=== PATIENT | male | born 1980 | race Caucasian/White ===

== ENCOUNTER 2016-08-30 20:33 | Emergency (ER) | payer SELFPAY ==
[2016-08-30 20:56] VITALS: RESP 18
[2016-08-30] MEDS ORDERED: HYDROcodone/APAP 5-325MG 1 EACH TAB PO STA (21:34)
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
--- NOTE | 2016-08-30 22:09 | XR ---
EXAMINATION TYPE: XR ankle complete LT DATE OF EXAM: 08/30/2016 9:45 PM COMPARISON: NONE HISTORY: Ankle pain Technique 3 views. Findings I see no fracture nor dislocation. Ankle mortise is anatomic. Joint spaces are normal. IMPRESSION: Negative left ankle exam.
[2016-08-30 22:50] VITALS: BP 127/69; PULSE 54; TEMP 98
== END 2016-08-30 22:50 | disposition home or self-care (01) ==
LOC: EC 20:33
DX: S93.402A Sprain of unspecified ligament of left ankle, initial encounter (principal); S80.811A Abrasion, right lower leg, initial encounter; Z88.0 Allergy status to penicillin; F17.200 Nicotine dependence, unspecified, uncomplicated; W31.82XA Contact with other commercial machinery, initial encounter; Y99.0 Civilian activity done for income or pay
CPT/HCPCS: 99283

== ENCOUNTER 2017-04-10 09:49 | Emergency (ER) | payer OTHER ==
[2017-04-10 09:57] VITALS: RESP 18
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
--- NOTE | 2017-04-10 11:01 | XR ---
Left elbow HISTORY: Trauma and pain 3 views of the left elbow No comparisons Bone mineralization, joint spaces and alignment are maintained. No evident joint effusion. Mild soft tissue swelling. IMPRESSION: No acute fracture or dislocation evident, follow-up as indicated for persistent symptoms.
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
--- NOTE | 2017-04-10 11:08 | XR ---
Left foot HISTORY: Trauma and pain 3 views of the left foot No comparisons Bone mineralization, joint spaces and alignment are maintained. IMPRESSION: No fracture or dislocation. Follow-up as indicated.
[2017-04-10 11:48] VITALS: BP 124/70; PULSE 62; TEMP 98
== END 2017-04-10 11:47 | disposition home or self-care (01) ==
LOC: EC 09:49
DX: S93.402A Sprain of unspecified ligament of left ankle, initial encounter (principal); S50.02XA Contusion of left elbow, initial encounter; F17.200 Nicotine dependence, unspecified, uncomplicated; Z88.0 Allergy status to penicillin; Y93.39 Activity, other involving climbing, rappelling and jumping off; X50.1XXA Overexertion from prolonged static or awkward postures, initial encounter
CPT/HCPCS: 99284

== ENCOUNTER 2017-10-21 19:16 | Emergency (ER) | payer OTHER ==
[2017-10-21] MEDS ORDERED: HYDROcodone/APAP 5-325MG 1 EACH TAB PO STA (21:03)
[2017-10-21] MEDS ORDERED: RX INFO: IV CONTRAST WAS GIVEN 1 EACH MISC MISCELLANE PRN (21:03)
[2017-10-21 21:27] LABS: Basophils % (A) 0 %; Eosinophils # (A) 0.3 k/uL (0-0.7); Eosinophils % (A) 3 %; HCT 40.6 % (39.0-53.0); HGB 14.2 gm/dL (13.0-17.5); Lymphocytes # (A) 1.1 k/uL (1.0-4.8); Lymphocytes % (A) 11 %; MCH 32.7 pg (25.0-35.0); MCHC 34.9 g/dL (31.0-37.0); MCV 93.6 fL (80.0-100.0); Mean Platelet Volume 7.2; Monocytes # (A) 0.6 k/uL (0-1.0); Monocytes % (A) 5 %; Neutrophils # (A) 8.8 k/uL (1.3-7.7); Neutrophils % (A) 81 %; Platelet Count 235 k/uL (150-450); RBC 4.34 m/uL (4.30-5.90); WBC 10.9 k/uL (3.8-10.6)
[2017-10-21 21:41] LABS: ALT 25 U/L (21-72); AST 16 U/L (17-59); Alkaline Phosphatase 68 U/L (38-126); Anion Gap 10 mmol/L; Blood Urea Nitrogen 15 mg/dL (9-20); Calcium 9.1 mg/dL (8.4-10.2); Carbon Dioxide 28 mmol/L (22-30); Chloride 103 mmol/L (98-107); Glucose 115 mg/dL (74-99); Potassium 3.6 mmol/L (3.5-5.1); Sodium 141 mmol/L (137-145); Total Bilirubin 0.8 mg/dL (0.2-1.3); Total Protein 6.8 g/dL (6.3-8.2)
--- NOTE | 2017-10-21 22:04 | CT ---
EXAMINATION TYPE: CT pelvis w con DATE OF EXAM: 10/21/2017 COMPARISON: NONE INDICATION: Rectal abscess. DLP: 590 mGycm, Automated exposure control for dose reduction was used. CONTRAST: 100ml mL of Omnipaque 300. Study performed without Oral Contrast TECHNIQUE: Axial images were obtained from above the diaphragm to the pubic rami in the axial plane a t 5 mm thick sections. Reconstructed images are reviewed on the computer in the coronal plane. FINDINGS: Limited CT ABDOMEN: There is limited visualization of the lower abdominal structures. No abnormality is identified. CT PELVIS: Loops of bowel within the abdomen and pelvis are normal. Exam is performed without oral contrast limiting bowel loop evaluation. Patient's reported rectal abscess is not identified. Some thickening and phlegmon is not excluded rosanne r the gluteal fold. Some hypodensity may be within this area with ill-defined chang. Early abscess fo rmation is not excluded. This area would measure approximately 2.4 x 1.9 x 1.3 cm size. Appendix: Normal as visualized. Urinary bladder: Normal. Genitourinary structures: Prostate is somewhat prominent. Osseous structures: No suspicious lytic or sclerotic lesions. IMPRESSIONS: 1. Some thickening with ill-defined hypodensity near the gluteal fold below the anus could be phlegm on or early abscess.
[2017-10-21] MEDS ORDERED: CIPROFLOXACIN HCL 500 MG TAB PO STA (22:10)
[2017-10-21] MEDS ORDERED: metroNIDAZOLE 500 MG TAB PO STA (22:12)
--- NOTE | 2017-10-21 22:14 | ED ---
Skin/Abscess/FB HPI - General Chief complaint: Skin/Abscess/Foreign Body Stated complaint: hernia Time Seen by Provider: 10/21/17 20:57 Source: patient, RN notes reviewed Mode of arrival: ambulatory Limitations: no limitations - History of Present Illness Initial comments: This a 37-year-old male presents emergency Department chief complaint of rectal pain. Patient states that he's had a small masslike area, some drainage noted. Patient states that he is having bowel movements that are minimally painful. Patient denies fever, chills or denies any abdominal pain. Patient states that he's had an no rectal penetration. Patient denies any dysuria hematuria. - Related Data Previous Rx's Medication Instructions Recorded Ciprofloxacin HCl [Cipro] 500 mg PO Q12HR #20 tablet 10/21/17 Hydrocodone/Acetaminophen [[place] 1 tab PO Q6HR PRN #15 tab 10/21/17 5-325] metroNIDAZOLE [Flagyl] 500 mg PO TID #30 tab 10/21/17 Allergies Allergy/AdvReac Type Severity Reaction Status Date / Time Penicillins Allergy Unknown Verified 10/21/17 20:52 Childhood Review of Systems ROS Statement: Those systems with pertinent positive or pertinent negative responses have been documented in the HPI. ROS Other: All systems not noted in ROS Statement are negative. Past Medical History Past Medical History: Asthma, Thyroid Disorder History of Any Multi-Drug Resistant Organisms: None Reported Additional Past Surgical History / Comment(s): left arm fasciaotomy Past Psychological History: ADD/ADHD, Anxiety, Bipolar, Depression Smoking Status: Current every day smoker Past Alcohol Use History: Occasional Past Drug Use History: None Reported General Exam Limitations: no limitations General appearance: alert, in no apparent distress Head exam: Present: atraumatic, normocephalic, normal inspection Neck exam: Present: normal inspection. Absent: tenderness, meningismus, lymphadenopathy Respiratory exam: Present: normal lung sounds bilaterally. Absent: respiratory distress, wheezes, rales, rhonchi, stridor Cardiovascular Exam: Present: regular rate, normal rhythm, normal heart sounds. Absent: systolic murmur, diastolic murmur, rubs, gallop, clicks GI/Abdominal exam: Present: soft, normal bowel sounds. Absent: distended, tenderness, guarding, rebound, rigid Rectal exam: Absent: normal inspection (Small erythematous area in the perirectal region that is tender with palpation nonfluctuant) Course Vital Signs 10/21/17 10/21/17 19:26 22:04 Temperature 98.2 F Pulse Rate 89 76 Respiratory 18 17 Rate Blood Pressure 134/66 126/63 O2 Sat by Pulse 99 98 Oximetry Medical Decision Making - Medical Decision Making 37-year-old male presented for perirectal pain. Patient has early phlegmon versus abscess. There is non-fluctuant area noted to open at this time. Patient will be started on Cipro Flagyl follow-up with on-call surgery was be discharged with pain medication return parameters were discussed. - Lab Data Result diagrams: 10/21/17 21:18 10/21/17 21:18 Lab Results 10/21/17 10/21/17 10/21/17 Range/Units 21:18 21:18 21:18 WBC 10.9 H (3.8-10.6) k/uL RBC 4.34 (4.30-5.90) m/uL Hgb 14.2 (13.0-17.5) gm/dL Hct 40.6 (39.0-53.0) % MCV 93.6 (80.0-100.0) fL MCH 32.7 (25.0-35.0) pg MCHC 34.9 (31.0-37.0) g/dL RDW 13.0 (11.5-15.5) % Plt Count 235 (150-450) k/uL Neutrophils % 81 % Lymphocytes % 11 % Monocytes % 5 % Eosinophils % 3 % Basophils % 0 % Neutrophils # 8.8 H (1.3-7.7) k/uL Lymphocytes # 1.1 (1.0-4.8) k/uL Monocytes # 0.6 (0-1.0) k/uL Eosinophils # 0.3 (0-0.7) k/uL Basophils # 0.0 (0-0.2) k/uL Sodium 141 (137-145) mmol/L Potassium 3.6 (3.5-5.1) mmol/L Chloride 103 (98-107) mmol/L Carbon Dioxide 28 (22-30) mmol/L Anion Gap 10 mmol/L BUN 15 (9-20) mg/dL Creatinine 1.00 (0.66-1.25) mg/dL Est GFR (MDRD) Af Amer >60 (>60 ml/min/1.73 sqM) Est GFR (MDRD) Non-Af >60 (>60 ml/min/1.73 sqM) Glucose 115 H (74-99) mg/dL Plasma Lactic Acid Jose 0.9 (0.7-2.0) mmol/L Calcium 9.1 (8.4-10.2) mg/dL Total Bilirubin 0.8 (0.2-1.3) mg/dL AST 16 L (17-59) U/L ALT 25 (21-72) U/L Alkaline Phosphatase 68 (38-126) U/L Total Protein 6.8 (6.3-8.2) g/dL Albumin 4.0 (3.5-5.0) g/dL Disposition Clinical Impression: Abscess of buttock Disposition: HOME SELF-CARE Condition: Stable Instructions: Abscess (ED) Additional Instructions: Please return to the Emergency Department if symptoms worsen or any other concerns. Prescriptions: Ciprofloxacin HCl [Cipro] 500 mg PO Q12HR #20 tablet Hydrocodone/Acetaminophen [[place] 5-325] 1 tab PO Q6HR PRN #15 tab PRN Reason: Pain metroNIDAZOLE [Flagyl] 500 mg PO TID #30 tab Referrals: Elijah Parker MD [Primary Care Provider] - 1-2 days Vasquez Forbes MD [STAFF PHYSICIAN] - 1-2 days Time of Disposition: 22:14
[2017-10-21 22:28] VITALS: BP 131/72; PULSE 78; RESP 18; TEMP 98.5
== END 2017-10-21 22:31 | disposition home or self-care (01) ==
LOC: EC 19:16
DX: L02.31 Cutaneous abscess of buttock (principal); F17.200 Nicotine dependence, unspecified, uncomplicated; Z88.0 Allergy status to penicillin
CPT/HCPCS: 36415; 80053; 83605; 85025; 87040; 72193; 99284; Q9967

== ENCOUNTER 2017-10-22 19:15 | Inpatient (IN) | payer MEDICAID, OTHER ==
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
[2017-10-22 20:29] LABS: Amphetamine Screen,Urine Detected (NotDetected); Barbiturate Screen,Urine Not Detected (NotDetected); Benzodiazepines Screen,Urine Not Detected (NotDetected); Cocaine Screen,Urine Detected (NotDetected); Methadone Screen, Urine Not Detected (NotDetected); Opiate Screen,Urine Detected (NotDetected); Oxycodone Screen, Urine Detected (NotDetected); Phencyclidine Screen,Urine Not Detected (NotDetected); Tricyclic Antidepressant,Urine Not Detected (NotDetected); Urn Cannabinoid Scrn Detected (NotDetected)
[2017-10-22] MEDS ORDERED: NICOTINE 21MG/24HR PATCH TRANSDERM STA (21:18)
[2017-10-22] MEDS ORDERED: ZIPRASIDONE 20 MG VIAL IM PRN (22:06)
[2017-10-22] MEDS ORDERED: MAGNESIUM HYDROXIDE 2,400 MG/10 ML CUP PO PRN (22:06)
[2017-10-22] MEDS ORDERED: MAG HYDROX/AL HYDROX/SIMETH 30 ML CUP PO PRN (22:06)
[2017-10-23] MEDS: NICOTINE 21MG/24HR PATCH TRANSDERM SCH (08:49)
[2017-10-23] MEDS: CIPROFLOXACIN HCL 500 MG TAB PO SCH ×2 (08:49→20:50)
[2017-10-23] MEDS: ACETAMINOPHEN TAB 325 MG TAB PO PRN ×2 (08:49→20:51)
[2017-10-23] MEDS: metroNIDAZOLE 500 MG TAB PO SCH ×3 (08:49→20:52)
[2017-10-23 09:56] LABS: Basophils % (A) 1 %; Eosinophils # (A) 0.3 k/uL (0-0.7); Eosinophils % (A) 6 %; HCT 37.9 % (39.0-53.0); HGB 12.7 gm/dL (13.0-17.5); Lymphocytes # (A) 1.7 k/uL (1.0-4.8); Lymphocytes % (A) 32 %; MCH 31.7 pg (25.0-35.0); MCHC 33.7 g/dL (31.0-37.0); MCV 94.2 fL (80.0-100.0); Mean Platelet Volume 6.8; Monocytes # (A) 0.5 k/uL (0-1.0); Monocytes % (A) 9 %; Neutrophils # (A) 2.6 k/uL (1.3-7.7); Neutrophils % (A) 50 %; Platelet Count 257 k/uL (150-450); RBC 4.02 m/uL (4.30-5.90); RDW 12.8 % (11.5-15.5); WBC 5.3 k/uL (3.8-10.6)
[2017-10-23 10:56] LABS: ALT 37 U/L (21-72); AST 24 U/L (17-59); Albumin 3.3 g/dL (3.5-5.0); Alkaline Phosphatase 68 U/L (38-126); Anion Gap 9 mmol/L; Blood Urea Nitrogen 12 mg/dL (9-20); Calcium 8.8 mg/dL (8.4-10.2); Carbon Dioxide 28 mmol/L (22-30); Chloride 107 mmol/L (98-107); Cholesterol 78 mg/dL (<200); Glucose 144 mg/dL (74-99); HDL Cholesterol 38 mg/dL (40-60); LDL Cholesterol,Calculated 30 mg/dL (0-99); Potassium 3.8 mmol/L (3.5-5.1); Sodium 144 mmol/L (137-145); Total Bilirubin 0.2 mg/dL (0.2-1.3); Total Protein 5.6 g/dL (6.3-8.2); Triglycerides 48 mg/dL (<150)
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
[2017-10-23 19:37] LABS: Hemoglobin A1C 5.3 % (4.0-6.0)
[2017-10-23] MEDS: OLANZapine ODT 5 MG TAB PO SCH (20:50)
--- NOTE | 2017-10-23 23:38 | P.MDCNMH ---
History of Present Illness H&P Date: 10/23/17 Chief Complaint: Emotional breakdown Patient is 37-yearold male with a known history of asthma was admitted to the hospital with complaints of emotional breakdown. Patient was brought to the hospital for psychiatric evaluation. Apparently patient has been using methamphetamine cocaine and marijuana. Patient states that he told his sister that he would be better off . Patient became more paranoid last night. Otherwise patient denied any chest pain or shortness of breath. No recent illnesses or sick contacts. No nausea vomiting or abdominal pain. No diarrhea or dysuria. Patient denied any IV drug abuse. Patient states he primarily uses methamphetamines. Patient denies any alcohol use today. She was seen in the ER for rectal abscess and was started on antibiotics in the form of ciprofloxacin and Flagyl. Patient states that pain is improving and abscesses draining at this time. Review of Systems Constitutional: Patient denies any fever or chills . No generalized weakness or weight loss. Abdomen: Patient denied nausea vomiting and diarrhea and abdominal pain. Cardiovascular: Patient denies any chest pain or short of breath no palpitations. Respiratory: patient denied any cough is from production. No shortness of breath Neurologic: Patient denied any numbness or tingling headache. Musculoskeletal: Patient denies any complaints of joint swelling or deformity. Skin: Negative Psychiatric: Anxious Endocrine: No heat or cold intolerance. No recent weight gain. Genitourinary: No dysuria or hematuria. All other 14 point ROS negative except the above Past Medical History Past Medical History: Asthma, Thyroid Disorder History of Any Multi-Drug Resistant Organisms: None Reported Additional Past Surgical History / Comment(s): left arm fasciaotomy Past Psychological History: ADD/ADHD, Anxiety, Bipolar, Depression Smoking Status: Current every day smoker Past Alcohol Use History: Occasional Past Drug Use History: Methamphetamine Medications and Allergies Home Medications Medication Instructions Recorded Confirmed Type Ciprofloxacin HCl [Cipro] 500 mg PO Q12HR #20 tablet 10/21/17 10/22/17 Rx Hydrocodone/Acetaminophen [[place] 1 tab PO Q6HR PRN #15 tab 10/21/17 10/22/17 Rx 5-325] metroNIDAZOLE [Flagyl] 500 mg PO TID #30 tab 10/21/17 10/22/17 Rx Allergies Allergy/AdvReac Type Severity Reaction Status Date / Time Penicillins Allergy Unknown Verified 10/22/17 20:10 Childhood Physical Exam Vitals: Vital Signs Temp Pulse Resp BP 10/23/17 06:27 98 F 49 L 16 106/60 PHYSICAL EXAMINATION: Patient is lying in the bed comfortably, no acute distress, awake alert and oriented.. HEENT: Normocephalic. Neck is supple. Pupils reactive. Nostrils clear. Oral cavity is moist. Ears reveal no drainage. Neck reveals no JVD, carotid bruits, or thyromegaly. CHEST EXAMINATION: Trachea is central. Symmetrical expansion. Lung anne clear to auscultation and percussion. CARDIAC: Normal S1, S2 with no gallops. No murmurs ABDOMEN: Soft. Bowel sounds normal. No organomegaly. No abdominal bruits. Extremities: reveal no edema. No clubbing or cyanosis Neurologically awake, alert, oriented x3 with well-coordinated movements. No focal deficits noted Skin: No rash or skin lesions. Psychiatric: Coperative. Denied any suicidal ideation Musculoskeletal: No joint swelling or deformity. Normal range of motion. Cranial Nerve Examination - Cranial Nerves Cranial Nerve I- Olfactory: Intact Cranial Nerve II- Optic: Intact Cranial Nerve III- Oculomotor: Intact Cranial Nerve IV- Trochlear: Intact Cranial Nerve V- Trigeminal: Intact Cranial Nerve - Abducens: Intact Cranial Nerve VII- Facial: Intact Cranial Nerve VIII- Auditory: Intact Cranial Nerve IX- Glossopharyngeal: Intact Cranial Nerve X- Vagus: Intact Cranial Nerve XI- Accessory: Intact Cranial Nerve XII- Hypoglossal: Intact Results CBC & Chem 7: 10/23/17 09:21 10/23/17 09:21 Labs: Abnormal Lab Results - Last 24 Hours (Table) 10/23/17 10/23/17 Range/Units 09:21 09:21 RBC 4.02 L (4.30-5.90) m/uL Hgb 12.7 L (13.0-17.5) gm/dL Hct 37.9 L (39.0-53.0) % Glucose 144 H (74-99) mg/dL Total Protein 5.6 L (6.3-8.2) g/dL Albumin 3.3 L (3.5-5.0) g/dL HDL Cholesterol 38 L (40-60) mg/dL Assessment and Plan Assessment: Acute psychosis with paranoid ideation on admission Polysubstance use Emotional breakdown Asthma stable UDS is positive for opiates, amphetamines cocaine and marijuana Depression Rectal abscess Plan: Patient will be continued on antibiotics in the form of ciprofloxacin and Flagyl. Asthma stable at this time otherwise. Continue the current management. Will check HIV status. Otherwise continue the current management and further recommendations based on the clinical course. Monitor for any drug withdrawal symptoms.
[2017-10-24] MEDS: metroNIDAZOLE 500 MG TAB PO SCH ×3 (09:54→21:06)
[2017-10-24] MEDS: CIPROFLOXACIN HCL 500 MG TAB PO SCH ×2 (09:54→21:06)
[2017-10-24] MEDS: NICOTINE 21MG/24HR PATCH TRANSDERM SCH (09:56)
--- NOTE | 2017-10-24 12:59 | P.PN ---
Progress Note - Text Progress Note Date: 10/24/17 Interval History: Patient is a 37-year-old male who was seen today and he reports that he slept last night and is not having any paranoid ideation and denies any suicidal thoughts and is not feeling depressed. Patient states that since he slept he is feeling much better and has been eating well here on the unit. Patient reports no side effects from taking the Zyprexa last evening and states his mouth is not dry. Patient reported that he had yet to make any calls for an intake for inpatient substance abuse rehab. Mental Status: Appearance/Attitude: Patient is appropriately dressed, wearing glasses today makes intermittent eye contact and is cooperative Behavior: Patient is not exhibiting any psychomotor agitation or retardation but does sit with his head down throughout most of the interview Speech/Language: Patient responds to questions with brief sentences little elaboration, his speech is of normal volume and rhythm and he is coherent Thought Process: Patient is goal-directed no evidence of circumstantial or tangential thought and no loose associations or flight of ideas. Thought Content: Patient denies any auditory or visual hallucinations and no delusions or paranoid ideation were elicited. Patient reports that he is sleeping and eating well and states he feels better now that he has slept. He is no longer feeling as irritable as he was and states that his rectal abscesses slightly more painful today. Suicidal/Homicidal Ideation: Patient denies any current suicidal or homicidal ideation. Sensorium/Cognition: Patient is alert and oriented to person, place, and time and his recent and remote memory are grossly intact Mood/Affect: Patient's mood apathetic, his affect is blunted Insight/Judgment: Patient's insight and judgment are fair Assessment: Patient presents stating that he feels better as he is slept and is eating better here on the unit, he denies any current paranoid ideation or any suicidal thoughts and is not feeling depressed. Patient has yet to contact inpatient rehab for an intake appointment. Patient spends most of his time in the room in bed and is not attending groups or activities. Patient reported no side effects from the medication. Plan: Patient will continue on Zyprexa Zydis 5 mg at bedtime, patient was encouraged to contact inpatient rehab to schedule an intake appointment. Consider possible discharge tomorrow if patient continues to improve and there is no evidence of a psychotic process or depression.
[2017-10-24] MEDS: OLANZapine ODT 5 MG TAB PO SCH (21:07)
[2017-10-25 07:00] VITALS: BP 118/57; PULSE 44; RESP 12; TEMP 97.7
[2017-10-25] MEDS: NICOTINE 21MG/24HR PATCH TRANSDERM SCH (09:33)
[2017-10-25] MEDS: metroNIDAZOLE 500 MG TAB PO SCH (09:33)
[2017-10-25] MEDS: CIPROFLOXACIN HCL 500 MG TAB PO SCH (09:33)
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
== END 2017-10-25 13:05 | disposition home or self-care (01) | DRG 885 ==
LOC: EC 19:15 → 3MHU 21:59
PROVIDERS: ADMIT Psychiatry & Neurology Psychiatry; ATTEND Psychiatry & Neurology Psychiatry
DX: F31.9 Bipolar disorder, unspecified (principal); K61.1 Rectal abscess; E03.9 Hypothyroidism, unspecified; F15.159 Other stimulant abuse with stimulant-induced psychotic disorder, unspecified; F16.159 Hallucinogen abuse with hallucinogen-induced psychotic disorder, unspecified; F17.200 Nicotine dependence, unspecified, uncomplicated; F90.9 Attention-deficit hyperactivity disorder, unspecified type; H54.8 Legal blindness, as defined in USA; J45.909 Unspecified asthma, uncomplicated; Z79.2 Long term (current) use of antibiotics; Z88.0 Allergy status to penicillin; Z91.14 Patient's other noncompliance with medication regimen; Z62.810 Personal history of physical and sexual abuse in childhood; F12.10 Cannabis abuse, uncomplicated
CPT/HCPCS: 80053; 80061; 80306; 82075; 83036; 84443; 85025; 99285

== ENCOUNTER 2017-12-12 17:40 | Inpatient (IN) | payer MEDICAID ==
[2017-12-12] MEDS ORDERED: ACETAMINOPHEN TAB 325 MG TAB PO PRN (19:15)
[2017-12-12] MEDS ORDERED: ZIPRASIDONE 20 MG VIAL IM PRN (19:15)
[2017-12-12] MEDS ORDERED: LORazepam 1 MG TAB PO PRN (19:15)
[2017-12-12] MEDS ORDERED: MAG HYDROX/AL HYDROX/SIMETH 30 ML CUP PO PRN (19:15)
[2017-12-12] MEDS: risperiDONE 1 MG TAB PO SCH (22:13)
--- NOTE | 2017-12-12 22:37 | P.MDCNMH ---
History of Present Illness H&P Date: 12/12/17 Chief Complaint: medical management 37-year-old male with no significant past medical history. He has been diagnosed with bipolar disorder. Patient has been transferred from [facility] for further management. A week ago he was found with significant wounds as he use knives to cut his neck and bilateral wrists, he initially was taken to [facility] by the police when he was found but that was transferred to [facility] for surgery due to his cuts being so deep. Patient claims that he was under the effect of methamphetamine, and he admits to multiple suicidal attempts in the past. Initially his urine drug screen was positive for amphetamine, marijuana, and methadone. And otherwise was not compliant with his psych medications. He also admitted to auditory hallucinations Currently patient seen in the mental health unit seems to be calm and comfortable denies any physical or medical complaints at this point. Review of Systems Constitutional: Patient denies fever, denies chills, denies night sweating, denies significant weight changes Eyes: Patient denies visual changes, denies eye pain ENT: Patient denies ear pain, denies rhinorrhea, denies sore throat Cardiovascular: Patient denies chest pain, denies exertional dyspnea, denies peripheral leg edema, denies orthopnea, denies paroxysmal nocturnal dyspnea Respiratory:Patient denies cough, denies wheezing, denies shortness of breath Gastrointestinal: Patient denies diarrhea, denies constipation, denies nausea , denies vomiting, denies abdominal pain Genitourinary: Patient denies dysuria, denies hematuria, denies changes in urinary habits, denies genital lesions Musculoskeletal: Patient denies muscle pain, denies joint pain, reports pain at surgical site controlled with medications Psychiatric: Patient reports anxiety, reports suicidal ideation and recent suicidal attempt Endocrine: Patient denies heat intolerance, denies cold intolerance, denies excessive thirst, denies polyuria Neurological: Patient denies focal neurologic deficits, denies weakness, denies numbness, denies tingling Hem/Lymphatic: Patient denies bleeding tendency, denies bruising, denies swollen lymph glands Allergic/Immun: Patient denies recent allergic reactions Skin: Patient denies rashes, denies pruritis, denies ulcers Past Medical History Past Medical History: Asthma, Thyroid Disorder History of Any Multi-Drug Resistant Organisms: None Reported Additional Past Surgical History / Comment(s): left arm fasciaotomy Past Psychological History: ADD/ADHD, Anxiety, Bipolar, Depression Smoking Status: Current every day smoker Past Alcohol Use History: Occasional Past Drug Use History: Methamphetamine - Past Family History Family Additional Family Medical History / Comment(s): history of diabetes mellitus in his mother Medications and Allergies Home Medications Medication Instructions Recorded Confirmed Type Ciprofloxacin HCl [Cipro] 500 mg PO Q12HR #20 tablet 10/25/17 10/22/17 Rx OLANZapine ODT [ZyPREXA Zydis] 5 mg PO HS #14 tab 10/25/17 Rx metroNIDAZOLE [Flagyl] 500 mg PO TID #30 tab 10/25/17 10/22/17 Rx Allergies Allergy/AdvReac Type Severity Reaction Status Date / Time Penicillins Allergy Unknown Verified 10/22/17 20:10 Childhood Physical Exam Vitals: Intake and Output 12/12/17 12/12/17 12/12/17 06:59 14:59 22:59 Other: Weight 89.44 kg Constitutional: No acute distress, disheveled Eyes: Anicteric sclerae, moist conjunctiva, no lid-lag Pupils equal round reactive to light ENMT: Normocephalic Oropharynx clear, no erythema, exudates Neck: Multiple neck wounds status post suturing no surrounding erythema or induration, no drainage , sutures in place Supple, FROM, no masses, or JVD No carotid bruits No thyromegaly Lungs: Clear to auscultation Clear to percussion Normal respiratory effort, no accessory muscle use Cardiovascular: Heart regular in rate and rhythm, No murmurs, gallops, or rubs No peripheral edema Abdominal: Patient umbilicus with some erythema no tenderness palpation Soft Nontender, no guarding, rebound or rigidity Abdomen moving with respiration Normoactive bowel sounds No hepatomegaly, No splenomegaly No palpable mass No abdominal wall hernia noted Condom catheter in place Skin: Multiple cuts status post suturing over the anterior aspect of his neck Normal temperature, tone, texture, turgor No induration No subcutaneous nodules No rash, lesions No ulcers Extremities: No digital cyanosis No clubbing Pedal pulses intact and symmetrical Radial pulses could not be examined due to surgical dressing bilaterally No calf tenderness Psychiatric: Alert and oriented to person, place Appropriate affect poor judgment Neuro Muscles Strength 5/5 in all lower extremities bilaterally and bilateral proximal upper extremities. Bilateral forearms and hands wrapped in surgical dressing sensation to light touch grossly present throughout No focal sensory deficits Lymphatics: no palpable cervical or supraclavicular , or inguinal lymph nodes Cranial Nerve Examination - Cranial Nerves Cranial Nerve II- Optic: Intact Cranial Nerve III- Oculomotor: Intact Cranial Nerve IV- Trochlear: Intact Cranial Nerve V- Trigeminal: Intact Cranial Nerve - Abducens: Intact Cranial Nerve VII- Facial: Intact Cranial Nerve VIII- Auditory: Intact Cranial Nerve IX- Glossopharyngeal: Intact Cranial Nerve X- Vagus: Intact Cranial Nerve XI- Accessory: Intact Cranial Nerve XII- Hypoglossal: Intact Assessment and Plan Assessment: 37-year-old male with history of bipolar disorder, patient uses multi-drugs he was under the effect of methamphetamine a week ago when he committed suicide using knives to cut his wrist bilaterally and his neck, he was found by the police was taken to [facility] within transferred to [facility] to have surgeries done, a week later he was transferred back to our hospital for further psychiatry care. Currently he denies any medical complaints Plan: #Multiple self-inflicted wounds to the neck and bilateral wrists Patient follow-up with hand surgery Dr. Saravanan Coe [phone]. On December 20 Pain control #Umbilical erythema Possible fungal infection Local care, antifungal powder, basitracin #Psychosis #Bipolar disorder #Suicide attempt Management per psych #DVT prophylaxis patient is low risk and ambulatory now Follow-up labs Thank you for allowing us to participate in the care of this patient. We will follow peripherally. Do not hesitate to contact us with questions. Someone can be reached from the [facility] hospitalist group at all hours of the day at [phone].
[2017-12-12] MEDS ORDERED: LORazepam 2 MG/ML INJ IM PRN (23:04)
[2017-12-13 00:19] VITALS: BMI 23.4
[2017-12-13 09:36] LABS: Basophils % (A) 0 %; Eosinophils # (A) 0.3 k/uL (0-0.7); Eosinophils % (A) 6 %; HCT 30.1 % (39.0-53.0); HGB 10.2 gm/dL (13.0-17.5); Lymphocytes # (A) 1.6 k/uL (1.0-4.8); Lymphocytes % (A) 35 %; MCHC 33.9 g/dL (31.0-37.0); MCV 94.5 fL (80.0-100.0); Mean Platelet Volume 7.1; Monocytes # (A) 0.2 k/uL (0-1.0); Monocytes % (A) 5 %; Neutrophils # (A) 2.4 k/uL (1.3-7.7); Neutrophils % (A) 51 %; Platelet Count 327 k/uL (150-450); RBC 3.19 m/uL (4.30-5.90); RDW 14.1 % (11.5-15.5); WBC 4.6 k/uL (3.8-10.6)
[2017-12-13] MEDS: BACITRACIN 500 UNIT/GM OINT 28.4 GM TUBE TOPICAL SCH ×2 (09:41→20:49)
[2017-12-13] MEDS: MICONAZOLE NITRATE 2% CREAM 14 GM TUBE TOPICAL SCH ×2 (09:41→20:49)
[2017-12-13] MEDS: NICOTINE 14MG/24HR PATCH TRANSDERM SCH (09:43)
[2017-12-13] MEDS: risperiDONE 1 MG TAB PO SCH (09:43)
[2017-12-13 09:49] LABS: ALT 25 U/L (21-72); AST 21 U/L (17-59); Albumin 3.2 g/dL (3.5-5.0); Alkaline Phosphatase 43 U/L (38-126); Anion Gap 9 mmol/L; Blood Urea Nitrogen 15 mg/dL (9-20); Calcium 8.8 mg/dL (8.4-10.2); Carbon Dioxide 30 mmol/L (22-30); Chloride 104 mmol/L (98-107); Glucose 114 mg/dL (74-99); Potassium 4.1 mmol/L (3.5-5.1); Sodium 143 mmol/L (137-145); Total Bilirubin 0.2 mg/dL (0.2-1.3); Total Protein 5.7 g/dL (6.3-8.2)
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
--- NOTE | 2017-12-13 16:56 | P.PN ---
Progress Note - Text Progress Note Date: 12/13/17 Called to see patient because he unwrapped wrist. Splint replaced and 2 new adela wraps placed. Patient with 8/10 pain not responsive to Tylenol. He is asking for something more for pain. We discussed that he needs to leave adela in place to ensure that his injuries heal properly. Will add norco for this acute pain episode recommended duration of 10 days or less. Patient informed us that his PCP is Dr. Parker. I have asked the staff to alert Dr. Ventura of admission and consult. Karen Perry, DO
[2017-12-13] MEDS: HYDROcodone/APAP 7.5-325MG 1 EACH TAB PO PRN (17:02)
[2017-12-13] MEDS: risperiDONE 2 MG TAB PO SCH (20:49)
[2017-12-13] MEDS: MAGNESIUM HYDROXIDE 2,400 MG/10 ML CUP PO PRN (20:50)
[2017-12-14] MEDS: risperiDONE 1 MG TAB PO SCH (08:02)
[2017-12-14] MEDS: CITALOPRAM HYDROBROMIDE 10 MG TAB PO SCH (08:02)
[2017-12-14] MEDS: HYDROcodone/APAP 7.5-325MG 1 EACH TAB PO PRN ×3 (08:03→20:54)
[2017-12-14] MEDS: NICOTINE 14MG/24HR PATCH TRANSDERM SCH (09:16)
[2017-12-14] MEDS: BACITRACIN 500 UNIT/GM OINT 28.4 GM TUBE TOPICAL SCH ×2 (09:51→20:54)
[2017-12-14] MEDS: MICONAZOLE NITRATE 2% CREAM 14 GM TUBE TOPICAL SCH ×2 (09:51→20:54)
--- NOTE | 2017-12-14 19:09 | P.PN ---
Progress Note - Text Progress Note Date: 12/14/17 Patient was seen today. He reports feeling less paranoid today. He reports he has not heard voices recently. He continues to complain about feeling depressed. He rates his depression as 7 out of 10 one being best and 10 being worst. He reports poor sleep, and is requesting if he could get something to help with his sleep. He reports good appetite. He reports staying inside his room most of the time. He stated he prefers to stay alone. He denies current suicidal or homicidal ideations. 37-year-old male. Both his arms and hands are wrapped up in bandages. He appears in fair grooming and hygiene. He maintains good eye contact. He is pleasant and cooperative. No abnormal movements noted. His speech and thought processes are goal directed. His mood is reported as depressed and affect constricted. He denies current auditory or visual hallucinations. He reports less paranoia. He is alert and oriented 4. He denies current suicidal or homicidal ideations. His insight and judgment are improving. Patient to continue taking Risperdal 1 mg in the morning and 2 mg at bedtime. Contiue Celexa 10 mg po qday. Will start him on melatonin 3mg po qhs for insonia. Continue to monitor for safety and encourage participation in groups.
[2017-12-14] MEDS: MELATONIN 3 MG TABLET PO SCH (20:53)
[2017-12-14] MEDS: risperiDONE 2 MG TAB PO SCH (20:54)
[2017-12-15 07:03] VITALS: RESP 16
[2017-12-15] MEDS: risperiDONE 1 MG TAB PO SCH (08:17)
[2017-12-15] MEDS: HYDROcodone/APAP 7.5-325MG 1 EACH TAB PO PRN ×3 (08:17→20:56)
[2017-12-15] MEDS: CITALOPRAM HYDROBROMIDE 10 MG TAB PO SCH (08:17)
[2017-12-15] MEDS: BACITRACIN 500 UNIT/GM OINT 28.4 GM TUBE TOPICAL SCH ×2 (08:19→20:53)
[2017-12-15] MEDS: MICONAZOLE NITRATE 2% CREAM 14 GM TUBE TOPICAL SCH ×2 (08:19→20:54)
--- NOTE | 2017-12-15 17:37 | P.PN ---
Progress Note - Text Progress Note Date: 12/15/17 Patient was seen today in the [facility] watching TV . He reports to have stayed awake until 2am, for reasons not known to him. He stated he was able to sleep well from 2am onwards. He reports his depression is little better today. He reports good appetite. He doesnt attend groups and prefers to stay alone. 37-year-old male. Both his arms and hands are wrapped up in bandages. He appears in fair grooming and hygiene. He maintains good eye contact. He is pleasant and cooperative. No abnormal movements noted. His speech and thought processes are goal directed. His mood is reported as better and affect constricted. He denies current auditory or visual hallucinations. He denies paranoia. He is alert and oriented 4. He denies current suicidal or homicidal ideations. His insight and judgment are improving. Patient to continue taking Risperdal 1 mg in the morning and 2 mg at bedtime. Contiue Celexa 10 mg po qday. Contiue melatonin 3mg po qhs for insonia. Continue to monitor for safety and encourage participation in groups.
[2017-12-15] MEDS: MAGNESIUM HYDROXIDE 2,400 MG/10 ML CUP PO PRN (19:00)
[2017-12-15] MEDS: MELATONIN 3 MG TABLET PO SCH (20:18)
[2017-12-15] MEDS: risperiDONE 2 MG TAB PO SCH (20:18)
[2017-12-16 06:43] VITALS: BP 124/65; PULSE 56; TEMP 97.9
[2017-12-16] MEDS: BACITRACIN 500 UNIT/GM OINT 28.4 GM TUBE TOPICAL SCH (08:40)
[2017-12-16] MEDS: MICONAZOLE NITRATE 2% CREAM 14 GM TUBE TOPICAL SCH (08:41)
[2017-12-16] MEDS: risperiDONE 1 MG TAB PO SCH (08:41)
[2017-12-16] MEDS: CITALOPRAM HYDROBROMIDE 10 MG TAB PO SCH (08:41)
[2017-12-16] MEDS: HYDROcodone/APAP 7.5-325MG 1 EACH TAB PO PRN ×2 (08:41→14:07)
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
== END 2017-12-16 16:30 | disposition home or self-care (01) | DRG 897 ==
LOC: 3MHU 21:33
PROVIDERS: ADMIT Psychiatry & Neurology Psychiatry; ATTEND Psychiatry & Neurology Psychiatry
DX: F13.951 Sedative, hypnotic or anxiolytic use, unspecified with sedative, hypnotic or anxiolytic-induced psychotic disorder with hallucinations (principal); F31.9 Bipolar disorder, unspecified; S11.91XA Laceration without foreign body of unspecified part of neck, initial encounter; S61.512A Laceration without foreign body of left wrist, initial encounter; S61.511A Laceration without foreign body of right wrist, initial encounter; F15.90 Other stimulant use, unspecified, uncomplicated; B36.8 Other specified superficial mycoses; F90.9 Attention-deficit hyperactivity disorder, unspecified type; E07.9 Disorder of thyroid, unspecified; J45.909 Unspecified asthma, uncomplicated; H54.8 Legal blindness, as defined in USA; F17.200 Nicotine dependence, unspecified, uncomplicated; X78.9XXA Intentional self-harm by unspecified sharp object, initial encounter; Z87.828 Personal history of other (healed) physical injury and trauma; Z91.5 Personal history of self-harm; Z79.899 Other long term (current) drug therapy; Z71.6 Tobacco abuse counseling
CPT/HCPCS: 80053; 84443; 85025

== ENCOUNTER 2018-01-10 18:00 | Emergency (ER) | payer OTHER ==
[2018-01-10] MEDS ORDERED: LORazepam 2 MG/ML INJ IV STA (19:11)
--- NOTE | 2018-01-10 19:15 | ED ---
Psych HPI - General Source: patient Mode of arrival: ambulatory <Matt Ortega - Last Filed: 01/11/18 01:33> <Grover Almazan - Last Filed: 01/11/18 02:55> - General Chief Complaint: Psychiatric Symptoms Stated Complaint: Mental Health Time Seen by Provider: 01/10/18 18:48 - History of Present Illness Initial Comments: Patient is a 37-year-old male presenting for drug usage. He states that he took a bath salts about 1.5 days ago and that he feels like "he is given a written his skin off". He also admits to hearing voices and attempted suicide 4 days ago by cutting himself. He states that although he does not have any suicidal ideation now, he would like to be checked in for further evaluation. He denies any chest pain, shortness breath, nausea/vomiting/diarrhea or abdominal pain. (Matt Ortega) - Related Data Home Medications Medication Instructions Recorded Confirmed ALPRAZolam [Xanax] 1 mg PO BID PRN 01/10/18 01/10/18 HYDROcodone/APAP 7.5-325MG [[place] 1 tab PO Q6HR PRN 01/10/18 01/10/18 7.5-325] Previous Rx's Medication Instructions Recorded Citalopram Hydrobromide [CeleXA] 10 mg PO DAILY #14 tab 12/16/17 risperiDONE [RisperDAL] 1 mg PO BID #42 tablet 12/16/17 Allergies Allergy/AdvReac Type Severity Reaction Status Date / Time Penicillins Allergy Unknown Verified 01/10/18 18:33 Childhood Review of Systems ROS Other: All systems not noted in ROS Statement are negative. <Matt Ortega - Last Filed: 01/11/18 01:33> ROS Other: All systems not noted in ROS Statement are negative. <Grover Almazan - Last Filed: 01/11/18 02:55> ROS Statement: Those systems with pertinent positive or pertinent negative responses have been documented in the HPI. Constitutional: Negative for chills, fatigue and fever. HENT: Negative for congestion. Respiratory: Negative for chest tightness, shortness of breath and wheezing. Negative for cough Cardiovascular: Negative for chest pain and palpitations. Gastrointestinal: Negative for abdominal pain. Negative for abdominal distention , diarrhea, nausea and vomiting. Genitourinary: Negative for dysuria. Musculoskeletal: Negative for back pain, neck pain and neck stiffness. Skin: Negative for color change. Neurological: Negative for dizziness, speech difficulty, weakness and light- headedness. Psychiatric/Behavioral: Negative for agitation and confusion. Positive for anxiousness; positive for auditory hallucinations. (Matt Ortega) Past Medical History Past Medical History: Asthma, Thyroid Disorder History of Any Multi-Drug Resistant Organisms: None Reported Past Surgical History: No Surgical Hx Reported Additional Past Surgical History / Comment(s): left arm fasciaotomy Past Psychological History: ADD/ADHD, Anxiety, Bipolar, Depression Smoking Status: Current every day smoker Past Alcohol Use History: None Reported Past Drug Use History: Marijuana, Methamphetamine - Past Family History Family Additional Family Medical History / Comment(s): history of diabetes mellitus in his mother <Matt Ortega - Last Filed: 01/11/18 01:33> General Exam Limitations: no limitations <Matt Ortega - Last Filed: 01/11/18 01:33> <Grover Almazan - Last Filed: 01/11/18 02:55> - General Exam Comments Initial Comments: Constitutional: Pt is oriented to person, place, and time. Pt appears well- developed and well-nourished. No distress. HENT: Head: Normocephalic and atraumatic. Eyes: EOM are normal. Neck: Normal range of motion. Neck supple. Cardiovascular: Tachycardia is present, regular rhythm, S1 normal, S2 normal and normal heart sounds. Exam reveals no gallop and no friction rub. No murmur heard. Pulmonary/Chest: Effort normal and breath sounds normal. No tachypnea and no bradypnea. No respiratory distress. No wheezes or rales noted. Abdominal: Soft. Bowel sounds are normal. Pt exhibits no shifting dullness, no distension, no pulsatile liver, no fluid wave, no abdominal bruit and no ascites. There is no tenderness. There is no rigidity, no rebound, no guarding, no tenderness at McBurney's point and negative Rocha's sign. Musculoskeletal: Normal range of motion. Neurological: Pt is alert and oriented to person, place, and time. No cranial nerve deficit. Skin: Skin is warm and dry. No rash noted. Pt is not diaphoretic. No erythema. No pallor. Midline scars in bilateral arms from prior suicide attempts Psychiatric: Patient is visibly anxious and states that he hears voices. ( Matt Ortega) Course <Matt Ortega - Last Filed: 01/11/18 01:33> <Grover Almazan - Last Filed: 01/11/18 02:55> Vital Signs 01/10/18 01/10/18 01/10/18 18:29 20:25 21:00 Temperature 98.5 F Pulse Rate 98 78 73 Respiratory 18 16 19 Rate Blood Pressure 132/75 128/73 128/76 O2 Sat by Pulse 98 99 99 Oximetry 01/10/18 01/10/18 01/11/18 21:55 22:00 00:10 Temperature Pulse Rate 71 54 L Respiratory 19 16 Rate Blood Pressure 129/72 120/60 O2 Sat by Pulse 98 96 97 Oximetry 01/11/18 01:00 Temperature Pulse Rate 72 Respiratory 19 Rate Blood Pressure 104/57 O2 Sat by Pulse 98 Oximetry - Reevaluation(s) Reevaluation #1: 01/11/18 01:33 Report has been called to psychiatric unit. Awaiting transfer patient to the floor. Patient continues to remain hemodynamically stable in no acute distress. (Matt Ortega) Medical Decision Making - Lab Data Result diagrams: 01/10/18 20:00 01/10/18 20:00 <Matt Ortega - Last Filed: 01/11/18 01:33> - Lab Data Result diagrams: 01/10/18 20:00 01/10/18 20:00 <Grover Almazan - Last Filed: 01/11/18 02:55> - Medical Decision Making Patient was observed in the emergency department for an extended period of time and was eventually given 2 mg of Ativan because he was becoming very agitated. Patient was able to calm down and sleep throughout the night and patient was evaluated by psychiatric nurse. Because the patient did have intermittent episodes of apnea which is suspected to be secondary to sleep apnea, it was requested that the patient be observed in the emergency department. Patient was taken off nasal cannula for over 2 hours and showed no evidence of decompensation hypoxia. Therefore it was felt that the patient could be transferred to psychiatry. (Matt Ortega) - Lab Data Lab Results 01/10/18 01/10/18 Range/Units 20:00 20:00 WBC 8.4 (3.8-10.6) k/uL RBC 4.06 L (4.30-5.90) m/uL Hgb 12.9 L (13.0-17.5) gm/dL Hct 36.9 L (39.0-53.0) % MCV 91.0 (80.0-100.0) fL MCH 31.9 (25.0-35.0) pg MCHC 35.1 (31.0-37.0) g/dL RDW 13.9 (11.5-15.5) % Plt Count 367 (150-450) k/uL Neutrophils % 55 % Lymphocytes % 34 % Monocytes % 6 % Eosinophils % 2 % Basophils % 1 % Neutrophils # 4.7 (1.3-7.7) k/uL Lymphocytes # 2.8 (1.0-4.8) k/uL Monocytes # 0.5 (0-1.0) k/uL Eosinophils # 0.2 (0-0.7) k/uL Basophils # 0.0 (0-0.2) k/uL Sodium 142 (137-145) mmol/L Potassium 4.3 (3.5-5.1) mmol/L Chloride 103 (98-107) mmol/L Carbon Dioxide 20 L (22-30) mmol/L Anion Gap 19 mmol/L BUN 31 H (9-20) mg/dL Creatinine 1.10 (0.66-1.25) mg/dL Est GFR (CKD-EPI)AfAm >90 (>60 ml/min/1.73 sqM) Est GFR (CKD-EPI)NonAf 85 (>60 ml/min/1.73 sqM) Glucose 82 (74-99) mg/dL Calcium 10.2 (8.4-10.2) mg/dL Magnesium 2.2 (1.6-2.3) mg/dL Total Bilirubin 0.8 (0.2-1.3) mg/dL AST 33 (17-59) U/L ALT 34 (21-72) U/L Alkaline Phosphatase 76 (38-126) U/L Creatine Kinase 327 H (55-170) U/L Total Protein 8.3 H (6.3-8.2) g/dL Albumin 5.1 H (3.5-5.0) g/dL - EKG Data EKG Comments: EKG showed normal sinus rhythm with rate of 62, ME interval 152, QRS 96, QTC 432. There is no significant ST depressions or elevations. (Matt Ortega) Disposition Time of Disposition: 01:02 <Matt Ortega - Last Filed: 01/11/18 01:33> Is patient prescribed a controlled substance at d/c from ED?: No <Grover Almazan - Last Filed: 01/11/18 02:55> Clinical Impression: Drug abuse, Auditory hallucinations, Acute anxiety Disposition: HOME SELF-CARE Condition: Fair Instructions: Brief Psychotic Disorder (ED), Methamphetamine Abuse (ED) Referrals: None,Stated [Primary Care Provider] - 1-2 days
[2018-01-10 20:17] LABS: Basophils % (A) 1 %; Eosinophils # (A) 0.2 k/uL (0-0.7); Eosinophils % (A) 2 %; HCT 36.9 % (39.0-53.0); HGB 12.9 gm/dL (13.0-17.5); Lymphocytes # (A) 2.8 k/uL (1.0-4.8); Lymphocytes % (A) 34 %; MCH 31.9 pg (25.0-35.0); MCHC 35.1 g/dL (31.0-37.0); Mean Platelet Volume 6.9; Monocytes # (A) 0.5 k/uL (0-1.0); Monocytes % (A) 6 %; Neutrophils # (A) 4.7 k/uL (1.3-7.7); Neutrophils % (A) 55 %; Platelet Count 367 k/uL (150-450); RBC 4.06 m/uL (4.30-5.90); RDW 13.9 % (11.5-15.5); WBC 8.4 k/uL (3.8-10.6)
[2018-01-10 20:29] LABS: ALT 34 U/L (21-72); AST 33 U/L (17-59); Albumin 5.1 g/dL (3.5-5.0); Alkaline Phosphatase 76 U/L (38-126); Anion Gap 19 mmol/L; Blood Urea Nitrogen 31 mg/dL (9-20); Calcium 10.2 mg/dL (8.4-10.2); Carbon Dioxide 20 mmol/L (22-30); Chloride 103 mmol/L (98-107); Creatine Kinase 327 U/L (55-170); Glucose 82 mg/dL (74-99); Magnesium 2.2 mg/dL (1.6-2.3); Potassium 4.3 mmol/L (3.5-5.1); Sodium 142 mmol/L (137-145); Total Bilirubin 0.8 mg/dL (0.2-1.3); Total Protein 8.3 g/dL (6.3-8.2)
[2018-01-11 03:11] VITALS: BP 113/63; PULSE 77; RESP 18; TEMP 98.2
== END 2018-01-11 03:10 | disposition home or self-care (01) ==
LOC: EC 18:00
DX: F19.10 Other psychoactive substance abuse, uncomplicated (principal); R44.0 Auditory hallucinations; F41.9 Anxiety disorder, unspecified; R45.1 Restlessness and agitation; R06.81 Apnea, not elsewhere classified; F17.200 Nicotine dependence, unspecified, uncomplicated; Z88.0 Allergy status to penicillin
CPT/HCPCS: 82075; 36415; 93005; 80053; 82550; 83735; 85025; 99284; 96374; J2060

== ENCOUNTER 2018-08-01 01:55 | Emergency (ER) | payer OTHER ==
[2018-08-01 02:21] VITALS: BP 154/99; PULSE 106; RESP 18; TEMP 98.2
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
[2018-08-01] MEDS ORDERED: SODIUM CHLORIDE 0.9% 1,000 ML IV ONE (03:19)
[2018-08-01 03:41] LABS: Basophils % (A) 0 %; Eosinophils # (A) 0.2 k/uL (0-0.7); Eosinophils % (A) 3 %; HCT 42.1 % (39.0-53.0); HGB 14.1 gm/dL (13.0-17.5); Lymphocytes % (A) 31 %; MCHC 33.4 g/dL (31.0-37.0); MCV 92.9 fL (80.0-100.0); Mean Platelet Volume 6.3; Monocytes # (A) 0.5 k/uL (0-1.0); Monocytes % (A) 8 %; Neutrophils # (A) 3.5 k/uL (1.3-7.7); Neutrophils % (A) 55 %; Platelet Count 277 k/uL (150-450); RBC 4.54 m/uL (4.30-5.90); RDW 13.2 % (11.5-15.5); WBC 6.2 k/uL (3.8-10.6)
[2018-08-01 03:47] LABS: Amphetamine Screen,Urine Detected (NotDetected); Barbiturate Screen,Urine Not Detected (NotDetected); Benzodiazepines Screen,Urine Not Detected (NotDetected); Cocaine Screen,Urine Not Detected (NotDetected); Methadone Screen, Urine Not Detected (NotDetected); Opiate Screen,Urine Detected (NotDetected); Oxycodone Screen, Urine Not Detected (NotDetected); Phencyclidine Screen,Urine Not Detected (NotDetected); Tricyclic Antidepressant,Urine Not Detected (NotDetected); Urn Cannabinoid Scrn Detected (NotDetected)
[2018-08-01 03:50] LABS: ALT 32 U/L (21-72); AST 24 U/L (17-59); Albumin 4.8 g/dL (3.5-5.0); Alkaline Phosphatase 49 U/L (38-126); Anion Gap 12 mmol/L; Blood Urea Nitrogen 14 mg/dL (9-20); Carbon Dioxide 19 mmol/L (22-30); Chloride 111 mmol/L (98-107); Glucose 111 mg/dL (74-99); Potassium 3.9 mmol/L (3.5-5.1); Sodium 142 mmol/L (137-145); Total Bilirubin 0.9 mg/dL (0.2-1.3); Total Protein 7.7 g/dL (6.3-8.2)
== END 2018-08-01 04:42 | disposition home or self-care (01) ==
LOC: EC 01:55
DX: F15.129 Other stimulant abuse with intoxication, unspecified (principal); F17.200 Nicotine dependence, unspecified, uncomplicated; Z88.0 Allergy status to penicillin
CPT/HCPCS: 36415; 80053; 80306; 85025; 96360; 99282

== ENCOUNTER 2018-08-05 23:57 | Emergency (ER) | payer OTHER ==
[2018-08-06] MEDS ORDERED: DIPH,PERTUS(ACELL)TETVAC-LF 0.5 ML VIAL IM ONE (00:03)
[2018-08-06] MEDS ORDERED: TOPICAL SKIN ADHESIVE 1 EACH AMP TOPICAL ONE (00:06)
[2018-08-06] MEDS: NALOXONE 0.4 MG/ML 10 ML VIAL IVP PRN ×2 (00:09→00:19)
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
[2018-08-06 00:39] LABS: Basophils % (A) 0 %; Eosinophils # (A) 0.1 k/uL (0-0.7); Eosinophils % (A) 1 %; HCT 38.3 % (39.0-53.0); HGB 12.4 gm/dL (13.0-17.5); Lymphocytes # (A) 1.6 k/uL (1.0-4.8); Lymphocytes % (A) 18 %; MCH 30.9 pg (25.0-35.0); MCHC 32.4 g/dL (31.0-37.0); MCV 95.4 fL (80.0-100.0); Mean Platelet Volume 6.5; Monocytes # (A) 0.4 k/uL (0-1.0); Monocytes % (A) 5 %; Neutrophils # (A) 6.3 k/uL (1.3-7.7); Neutrophils % (A) 73 %; Platelet Count 244 k/uL (150-450); RBC 4.02 m/uL (4.30-5.90); RDW 13.1 % (11.5-15.5); WBC 8.7 k/uL (3.8-10.6)
[2018-08-06 00:45] LABS: ALT 37 U/L (21-72); AST 26 U/L (17-59); Acetaminophen <10.0 ug/mL; Albumin 3.9 g/dL (3.5-5.0); Alcohol <10 mg/dL; Alkaline Phosphatase 42 U/L (38-126); Anion Gap 7 mmol/L; Blood Urea Nitrogen 10 mg/dL (9-20); Carbon Dioxide 25 mmol/L (22-30); Chloride 109 mmol/L (98-107); Glucose 98 mg/dL (74-99); Potassium 3.5 mmol/L (3.5-5.1); Salicylate <1.0 mg/dL; Sodium 141 mmol/L (137-145); Total Bilirubin 0.5 mg/dL (0.2-1.3); Total Protein 6.5 g/dL (6.3-8.2)
[2018-08-06 08:55] VITALS: RESP 18
[2018-08-06 09:16] LABS: Appearance,Urine Clear (Clear); Bilirubin,Urine Negative (Negative); Blood,Urine Negative (Negative); Color,Urine Yellow; Glucose,Urine (UA) Negative (Negative); Ketones,Urine 1+ (Negative); Leukocyte Esterase,Urine Negative (Negative); Nitrite,Urine Negative (Negative); PH, Urine 6.5 (5.0-8.0); Protein,Urine Negative (Negative); Specific Gravity,Urine 1.016 (1.001-1.035); Urobilinogen,Urine <2.0 mg/dL (<2.0)
[2018-08-06 09:33] LABS: Amphetamine Screen,Urine Detected (NotDetected); Barbiturate Screen,Urine Not Detected (NotDetected); Benzodiazepines Screen,Urine Not Detected (NotDetected); Cocaine Screen,Urine Not Detected (NotDetected); Methadone Screen, Urine Not Detected (NotDetected); Opiate Screen,Urine Not Detected (NotDetected); Oxycodone Screen, Urine Not Detected (NotDetected); Phencyclidine Screen,Urine Not Detected (NotDetected); Tricyclic Antidepressant,Urine Not Detected (NotDetected); Urn Cannabinoid Scrn Detected (NotDetected)
[2018-08-06 13:50] VITALS: BP 122/78; PULSE 60; TEMP 97.9
== END 2018-08-06 13:35 ==
LOC: EC 23:57
DX: S51.812A Laceration without foreign body of left forearm, initial encounter (principal); S51.811A Laceration without foreign body of right forearm, initial encounter; F32.9 Major depressive disorder, single episode, unspecified; R45.1 Restlessness and agitation; F17.200 Nicotine dependence, unspecified, uncomplicated; Z23 Encounter for immunization; Z88.0 Allergy status to penicillin; X78.0XXA Intentional self-harm by sharp glass, initial encounter
CPT/HCPCS: 36415; 80053; 85025; 81003; 80306; 83520 ×2; 90715; 99285; 96374; 90471; G0480; J2310; 80320

== ENCOUNTER 2020-05-24 13:09 | Emergency (ER) | payer OTHER ==
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
[2020-05-24 13:28] VITALS: RESP 18; TEMP 98.7
[2020-05-24] MEDS ORDERED: MORPHINE SULFATE 4 MG/ML SYRINGE IVP STA (13:52)
[2020-05-24 14:00] LABS: Basophils # (A) 0.1 k/uL (0-0.2); Basophils % (A) 1 %; Eosinophils # (A) 0.3 k/uL (0-0.7); Eosinophils % (A) 5 %; HCT 44.8 % (39.0-53.0); HGB 15.1 gm/dL (13.0-17.5); Lymphocytes # (A) 2.2 k/uL (1.0-4.8); Lymphocytes % (A) 42 %; MCHC 33.7 g/dL (31.0-37.0); Mean Platelet Volume 6.7; Monocytes # (A) 0.3 k/uL (0-1.0); Monocytes % (A) 6 %; Neutrophils # (A) 2.3 k/uL (1.3-7.7); Neutrophils % (A) 44 %; Platelet Count 209 k/uL (150-450); RBC 4.57 m/uL (4.30-5.90); RDW 12.3 % (11.5-15.5); WBC 5.2 k/uL (3.8-10.6)
[2020-05-24 14:10] LABS: ALT 14 U/L (4-49); AST 21 U/L (17-59); African American GFR (CKD) >90 (>60 ml/min/1.73 sqM); Albumin 4.6 g/dL (3.5-5.0); Alkaline Phosphatase 55 U/L (38-126); Anion Gap 9 mmol/L; Blood Urea Nitrogen 11 mg/dL (9-20); Calcium 9.5 mg/dL (8.4-10.2); Carbon Dioxide 21 mmol/L (22-30); Chloride 108 mmol/L (98-107); Glucose 90 mg/dL (74-99); Non-African American GFR(CKD) >90 (>60 ml/min/1.73 sqM); Sodium 138 mmol/L (137-145); Total Bilirubin 0.8 mg/dL (0.2-1.3); Total Protein 7.4 g/dL (6.3-8.2)
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
--- NOTE | 2020-05-24 14:38 | XR ---
EXAMINATION TYPE: XR chest 1V portable DATE OF EXAM: 05/24/2020 COMPARISON: NONE HISTORY: Pain TECHNIQUE: Single frontal view of the chest is obtained. FINDINGS: The heart is enlarged and there is a widened mediastinum. No evidence of consolidation. Re commend CT of the chest. No pleural effusion or pneumothorax. IMPRESSION: 1 cardiomegaly. Mediastinum is somewhat widened for the patient's age recommend CT of th e chest.
--- NOTE | 2020-05-24 14:39 | XR ---
EXAMINATION TYPE: XR knee complete LT DATE OF EXAM: 05/24/2020 COMPARISON: NONE HISTORY: Pain TECHNIQUE: Three views are submitted. FINDINGS: Joint spaces are preserved. Osseous structures are intact. No acute fracture seen. IMPRESSION: 1. No acute fracture or dislocation.
--- NOTE | 2020-05-24 14:39 | XR ---
EXAMINATION TYPE: XR foot complete LT DATE OF EXAM: 05/24/2020 COMPARISON: 04/10/2017 HISTORY: Pain TECHNIQUE: Three views are submitted. FINDINGS: The osseous structures are intact. There is no acute fracture or dislocation. Joint spaces are p reserved. IMPRESSION: 1. No acute fracture or dislocation. If symptoms persist, follow-up exam in 7 to 10 days could be ob tained.
--- NOTE | 2020-05-24 14:40 | XR ---
EXAMINATION TYPE: XR pelvis AP view DATE OF EXAM: 05/24/2020 COMPARISON: NONE HISTORY: Pain The osseous structures are intact and the joint spaces are preserved. No acute fracture is seen. Vi sualized bowel gas pattern is nonspecific. Contrast in the bladder noted. IMPRESSION: 1. No acute fracture.
--- NOTE | 2020-05-24 14:41 | XR ---
EXAMINATION TYPE: XR hand complete RT DATE OF EXAM: 05/24/2020 COMPARISON: NONE HISTORY: Pain TECHNIQUE: Three views are submitted. FINDINGS: The osseous structures are intact. The joint spaces are preserved and there is no acute fracture or dislocation. IMPRESSION: 1. No definite acute fracture or dislocation if symptoms persist, follow-up study in 7 to 10 days wo uld be suggested
--- NOTE | 2020-05-24 14:58 | XR ---
EXAMINATION TYPE: XR wrist complete RT DATE OF EXAM: 05/24/2020 COMPARISON: NONE HISTORY: Pain TECHNIQUE: Four views submitted. FINDINGS: The osseous structures are intact. The joint spaces are preserved and there is no acute fracture or dislocation. A benign-appearing cyst within the lunate and triquetral. IMPRESSION: 1. No definite acute fracture or dislocation if symptoms persist, follow-up study in 7 to 10 days wo uld be suggested
[2020-05-24] MEDS ORDERED: ACET/COD 300 MG/30 MG STARTER PACK 6 TAB BTL PO STA (15:39)
[2020-05-24 15:49] VITALS: BP 125/85; PULSE 46
== END 2020-05-24 15:59 | disposition home or self-care (01) ==
LOC: EC 13:09
DX: S60.511A Abrasion of right hand, initial encounter (principal); S99.822A Other specified injuries of left foot, initial encounter; S89.82XA Other specified injuries of left lower leg, initial encounter; Z88.0 Allergy status to penicillin; V03.99XA Pedestrian with other conveyance injured in collision with car, pick-up truck or van, unspecified whether traffic or nontraffic accident, initial encounter; Y92.488 Other paved roadways as the place of occurrence of the external cause; Y93.01 Activity, walking, marching and hiking
CPT/HCPCS: 36415; 93005; 86900; 86901; 80053; 85025; 86850; 72170; 73110; 73130; 73562; 73630; 71045; 72125; 70450; 71260; 74177; 96374; 99285; 29105; J2270; Q9967

== ENCOUNTER 2024-07-22 20:49 | Emergency (ER) | payer OTHER ==
[2024-07-22 21:04] VITALS: RESP 18
--- NOTE | 2024-07-22 21:17 | ED ---
Medical Clearance HPI - General Chief complaint: Drug Screen Stated complaint: [facility] Time Seen by Provider: 07/22/24 21:02 Source: patient, RN notes reviewed Mode of arrival: ambulatory Limitations: no limitations - History of Present Illness Initial comments: This is a 44-year-old female presenting for drug and alcohol testing following an incident at work. Patient denies any physical injuries, symptoms or concerns at this time. Onset/Timin -: days(s) Place: work Traumatic Symptoms: denies traumatic injury Treatments Prior to Arrival: none Home medications: Home Medications Medication Instructions Recorded Confirmed Gabapentin [Neurontin] 300 mg PO TID 08/06/18 08/06/18 Allergies/Adverse reactions: Allergies Allergy/AdvReac Type Severity Reaction Status Date / Time Penicillins Allergy Unknown Verified 08/06/18 00:03 Childhood Review of Systems ROS Statement: Those systems with pertinent positive or pertinent negative responses have been documented in the HPI. ROS Other: All systems not noted in ROS Statement are negative. Past Medical History Past Medical History: Asthma, Thyroid Disorder History of Any Multi-Drug Resistant Organisms: None Reported Past Surgical History: No Surgical Hx Reported Additional Past Surgical History / Comment(s): left arm fasciaotomy Past Psychological History: ADD/ADHD, Anxiety, Bipolar, Depression, Schizophrenia Past Alcohol Use History: Occasional Past Drug Use History: Heroin, Marijuana, Methamphetamine - Past Family History Family Additional Family Medical History / Comment(s): history of diabetes mellitus in his mother General Exam Limitations: no limitations General appearance: alert, in no apparent distress Head exam: Present: atraumatic, normocephalic, normal inspection Eye exam: Present: normal appearance, PERRL, EOMI. Absent: scleral icterus, conjunctival injection, periorbital swelling ENT exam: Present: normal exam, mucous membranes moist Neck exam: Present: normal inspection. Absent: tenderness, meningismus, lymphadenopathy Respiratory exam: Present: normal lung sounds bilaterally. Absent: respiratory distress, wheezes, rales, rhonchi, stridor Cardiovascular Exam: Present: regular rate, normal rhythm, normal heart sounds. Absent: systolic murmur, diastolic murmur, rubs, gallop, clicks GI/Abdominal exam: Present: soft, normal bowel sounds. Absent: distended, tenderness, guarding, rebound, rigid Extremities exam: Present: normal inspection, full ROM, normal capillary refill. Absent: tenderness, pedal edema, joint swelling, calf tenderness Back exam: Present: normal inspection Neurological exam: Present: alert, oriented X3, CN II-XII intact Psychiatric exam: Present: normal affect, normal mood Skin exam: Present: warm, dry, intact, normal color. Absent: rash Course Vital Signs 07/22/24 07/22/24 21:00 21:59 Temperature 98.4 F 98.0 F Pulse Rate 70 79 Respiratory 18 18 Rate Blood Pressure 149/89 122/71 O2 Sat by Pulse 96 98 Oximetry Medical Decision Making - Medical Decision Making Was pt. sent in by a medical professional or institution (, [facility], DATABASE SECURITY EXPERT, urgent care, hospital, or longterm...) When possible be specific @ -No Did you speak to anyone other than the patient for history (EMS, parent, family, police, friend...)? What history was obtained from this source @ -No Did you review nursing and triage notes (agree or disagree)? Why? @ -I reviewed and agree with nursing and triage notes Were old charts reviewed (outside hosp., previous admission, EMS record, old EKG, old radiological studies, urgent care reports/EKG's, longterm records)? Report findings @ -No old charts were reviewed Differential Diagnosis (chest pain, altered mental status, abdominal pain women, abdominal pain men, vaginal bleeding, weakness, fever, dyspnea, syncope, headache, dizziness, GI bleed, back pain, seizure, CVA, palpatations, mental health, musculoskeletal)? @ -Drug screen, positive drug test EKG interpreted by me (3pts min.). @ -Not done X-rays interpreted by me (1pt min.). @ -None done CT interpreted by me (1pt min.). @ -None done U/S interpreted by me (1pt. min.). @ -None done What testing was considered but not performed or refused? (CT, X-rays, U/S, labs)? Why? @ -None What meds were considered but not given or refused? Why? @ -None Did you discuss the management of the patient with other professionals (professionals i.e. HILARY Brewer, DATABASE SECURITY EXPERT, lab, RT, psych nurse, social welfare research worker, electric shipyard operator, teacher, police liaison officer, porter sample case)? Give summary @ -No Was smoking cessation discussed for >3mins.? @ -No Was critical care preformed (if so, how long)? @ -No Were there social determinants of health that impacted care today? How? (Homelessness, low income, unemployed, alcoholism, drug addiction, transportation, low edu. Level, literacy, decrease access to med. care, care home, rehab)? @ -No Was there de-escalation of care discussed even if they declined (Discuss DNR or withdrawal of care, Hospice)? DNR status @ -No What co-morbidities impacted this encounter? (DM, HTN, Smoking, COPD, CAD, Cancer, CVA, ARF, Chemo, Hep., AIDS, mental health diagnosis, sleep apnea, morbid obesity)? @ -None Was patient admitted / discharged? Hospital course, mention meds given and route, prescriptions, significant lab abnormalities, going to OR and other pertinent info. @ -Drug screen ordered Undiagnosed new problem with uncertain prognosis? @ -No Drug Therapy requiring intensive monitoring for toxicity (Heparin, Nitro, Insulin, Cardizem)? @ -No Were any procedures done? @ -No Diagnosis/symptom? @ -Drug screen Acute, or Chronic, or Acute on Chronic? @ -Acute Uncomplicated (without systemic symptoms) or Complicated (systemic symptoms)? @ -Uncomplicated Side effects of treatment? @ -No Exacerbation, Progression, or Severe Exacerbation? @ -No Poses a threat to life or bodily function? How? (Chest pain, [place], MA, pneumonia, PE, COPD, DKA, ARF, appy, cholecystitis, CVA, Diverticulitis, Homicidal, Suicidal, threat to staff... and all critical care pts) @ -No Disposition Clinical Impression: Encounter for drug screening, Alcohol screening Disposition: HOME SELF-CARE Condition: Good Is patient prescribed a controlled substance at d/c from ED?: No Referrals: None,Stated [Primary Care Provider] - 1-2 days Time of Disposition: 21:17
[2024-07-22 22:00] VITALS: BP 122/71; PULSE 79; TEMP 98
== END 2024-07-22 21:59 | disposition home or self-care (01) ==
LOC: EC 20:49
DX: Z02.83 Encounter for blood-alcohol and blood-drug test (principal); Z88.0 Allergy status to penicillin
CPT/HCPCS: 99499

== ENCOUNTER 2024-08-04 21:42 | Emergency (ER) | payer OTHER ==
[2024-08-04 22:06] VITALS: RESP 18
[2024-08-04 23:10] VITALS: BP 131/83; PULSE 53; TEMP 98.4
== END 2024-08-04 23:10 | disposition home or self-care (01) ==
LOC: EC 21:42
DX: Z02.83 Encounter for blood-alcohol and blood-drug test (principal)
CPT/HCPCS: 99499